=== PATIENT | male | born 1950 | race Caucasian/White ===

== ENCOUNTER 2017-07-20 05:54 | Emergency (ER) | payer MEDICARE ==
[2017-07-20 06:35] LABS: CHLORIDE,CL 103 mmol/L (101-111); SODIUM,NA 138 mmol/L (135-145)
--- NOTE | 2017-07-20 06:40 | EDM.PDOC ---
ED HPI GENERAL MEDICAL PROBLEM - General Stated Complaint: IN BY AMBULANCE STROKE Time Seen by Provider: 07/20/17 06:12 Source of Information: Reports: Patient, EMS ([facility]), Family (son) History Limitations: Reports: No Limitations - History of Present Illness INITIAL COMMENTS - FREE TEXT/NARRATIVE: This 67 yo male patient was brought to the ED by [facility] due to a possible stroke. EMS reports the patient has left sided weakness and left sided facial droop. The patient's son reports his last known normal time was at 2230 last night. The patient reports that he is not on any blood thinners, but does take Lisinopril for his blood pressure. Onset: Today Location: Reports: Head, Face, Upper Extremity, Left, Lower Extremity, Left Quality: Reports: Other Severity: Severe Improves with: Reports: None Worsens with: Reports: None Context: Reports: Other Treatments [employer]: Reports: IV/IO Social & Family History - Tobacco Use Smoking Status *Q: Current Every Day Smoker Years of Tobacco use: 4 Packs/Tins Daily: 0.1 Second Hand Smoke Exposure: Yes - Recreational Drug Use Recreational Drug Use: No ED ROS GENERAL - Review of Systems Review Of Systems: ROS reveals no pertinent complaints other than HPI. ED EXAM, NEURO - Physical Exam Exam: See Below Exam Limited By: No Limitations General Appearance: Alert, Severe Distress, Obese Eye Exam: Bilateral Eye: PERRL, Other (gaze to the right, left sided facial droop) Ears: Normal External Exam, Normal Canal, Hearing Grossly Normal, Normal TMs Nose: Normal Inspection, Normal Mucosa, No Blood Throat/Mouth: Other (left sided facial droop) Head Exam: Atraumatic, Normocephalic Neck: Normal Inspection, Supple, Non-Tender, Full Range of Motion Respiratory/Chest: No Respiratory Distress, Lungs Clear, Normal Breath Sounds, No Accessory Muscle Use, Chest Non-Tender Cardiovascular: Normal Peripheral Pulses, Regular Rate, Rhythm, No Edema, No Gallop, No JVD, No Murmur, No Rub GI/Abdominal: Normal Bowel Sounds, Soft, Non-Tender, No Organomegaly, No Distention, No Abnormal Bruit, No Mass, Other (obese) (Male) Exam: Deferred Rectal (Males) Exam: Deferred Neurological: Alert, Other (complete left sided weakness (upper and lower extremities), left sided facial droop) Psychiatric: Normal Affect, Normal Mood Skin Exam: Warm, Dry, Intact, Normal Color, No Rash Course - Vital Signs Last Recorded V/S: Last Vital Signs Temp 36.3 C 07/20/17 06:12 Pulse 68 07/20/17 06:12 Resp 18 07/20/17 06:12 BP 136/74 07/20/17 06:12 Pulse Ox 96 07/20/17 06:12 - Orders/Labs/Meds Orders: Active Orders 24 hr Category Date Time Status EKG Documentation Completion [RC] URGENT Care 07/20/17 05:49 Ordered Chest 1V Frontal [CR] Urgent Exams 07/20/17 06:29 Ordered Head wo Cont [CT] Urgent Exams 07/20/17 05:49 Ordered COMPREHENSIVE METABOLIC PN,CMP [CHEM] Urgent Lab 07/20/17 05:49 Ordered TROPONIN I [CHEM] Urgent Lab 07/20/17 05:49 Ordered Labs: Laboratory Tests 07/20/17 07/20/17 Range/Units 06:08 06:08 WBC 10.9 H (5.0-10.0) 10^3/uL RBC 4.26 L (4.6-6.2) 10^6/uL Hgb 13.3 L (14.0-18.0) g/dL Hct 39.1 L (40.0-54.0) % MCV 91.8 (80-100) fL MCH 31.2 (27.0-34.0) pg MCHC 34.0 (33.0-35.0) g/dL Plt Count 217 (150-450) 10^3/uL Neut % (Auto) 60.9 (42.2-75.2) % Lymph % (Auto) 24.2 (20.5-50.1) % Ford % (Auto) 9.0 H (2-8) % Eos % (Auto) 5.6 H (1.0-3.0) % Baso % (Auto) 0.3 (0.0-1.0) % PT 9.8 (9.0-12.0) SEC INR 1.0 (0.9-1.2) Departure - Departure Time of Disposition: 06:27 Disposition: DC/Tfer to Acute Hospital 02 Condition: Serious Clinical Impression: Acute ischemic stroke - Discharge Information Forms: Interfacility Transfer EMTALA Care Plan Goals: Discussed the patient's history, examination, CT and initial lab results with Dr. Pedraza (Neurology). Dr. Pedraza accepted the patient. The patient was transported by [facility]. - My Orders Last 24 Hours: My Active Orders 07/20/17 05:49 EKG Documentation Completion [RC] URGENT Head wo Cont [CT] Urgent COMPREHENSIVE METABOLIC PN,CMP [CHEM] Urgent TROPONIN I [CHEM] Urgent 07/20/17 06:29 Chest 1V Frontal [CR] Urgent - Assessment/Plan Last 24 Hours: My Active Orders 07/20/17 05:49 EKG Documentation Completion [RC] URGENT Head wo Cont [CT] Urgent COMPREHENSIVE METABOLIC PN,CMP [CHEM] Urgent TROPONIN I [CHEM] Urgent 07/20/17 06:29 Chest 1V Frontal [CR] Urgent
--- NOTE | 2017-07-23 12:40 | EKG ---
07/20/2017 - [facility] - FINDINGS: A 12-lead EKG shows normal sinus rhythm with no significant ST elevation or ST depression. A 12-lead EKG shows multiple ventricular premature complexes. Evidence of first-degree AV block with PA interval of 236. [facility] /[id number]
== END 2017-07-20 07:06 ==
LOC: DL.ED 05:54
DX: I63.9 Cerebral infarction, unspecified (principal); R29.810 Facial weakness; F17.210 Nicotine dependence, cigarettes, uncomplicated
CPT/HCPCS: 36415; 70450; 71045; 80053; 84484; 85025; 85610; 93005; 93010; 99285